=== PATIENT | male | born 1955 ===

== ENCOUNTER 2018-06-19 12:32 | Emergency (ER) | payer OTHER ==
[2018-06-19 13:00] VITALS: BP 164/79; PULSE 74; RESP 20; TEMP 98.3; O2SAT 98
--- NOTE | 2018-06-19 13:03 | C.PDOC ---
History Of Present Illness 62 y/o male with PMH of HTN presents to the ED c/o productive cough x 3 weeks. Associated tactile fever, burning thoracic back pain when coughing and sore throat. Denies flu shot. No sick contacts or recent travel. Denies chills, abdominal pain, N/V, urinary symptoms, numbness, weakness, paresthesias, headache, neck pain, or any other associated symptoms. Time Seen by Provider: 06/19/18 12:48 Chief Complaint (Nursing): Cough, Cold, Congestion History Per: Patient History/Exam Limitations: no limitations Onset/Duration Of Symptoms: Days Current Symptoms Are (Timing): Still Present Past Medical History Reviewed: Historical Data, Nursing Documentation, Vital Signs Vital Signs: Last Vital Signs Temp 98.3 F 06/19/18 12:46 Pulse 74 06/19/18 12:46 Resp 20 06/19/18 12:46 BP 164/79 H 06/19/18 12:46 Pulse Ox 98 06/19/18 12:46 - Medical History PMH: HTN Family History: States: No Known Family Hx - Social History Hx Alcohol Use: Yes Hx Substance Use: No - Immunization History Hx Tetanus Toxoid Vaccination: No Hx Influenza Vaccination: No Hx Pneumococcal Vaccination: No Review Of Systems Constitutional: Positive for: Fever. Negative for: Chills Eyes: Negative for: Vision Change ENT: Negative for: Mouth Pain, Throat Pain, Throat Swelling Cardiovascular: Negative for: Chest Pain, Palpitations Respiratory: Positive for: Cough, Sputum. Negative for: Shortness of Breath Gastrointestinal: Negative for: Nausea, Vomiting, Abdominal Pain Musculoskeletal: Positive for: Back Pain. Negative for: Neck Pain, Shoulder Pain Skin: Negative for: Rash Neurological: Negative for: Weakness, Numbness, Headache, Dizziness Physical Exam - Physical Exam Appears: Well, Non-toxic, No Acute Distress Skin: Normal Color, Warm, Dry Head: Atraumatic, Normacephalic, No Tenderness Eye(s): bilateral: Normal Inspection, PERRL, EOMI Ear(s): Bilateral: Normal Nose: Normal Oral Mucosa: Moist Throat: Normal Neck: Normal, Normal ROM, Supple Chest: Symmetrical, No Deformity, Tenderness (posterior chest wall tender to palpation) Cardiovascular: Rhythm Regular Respiratory: No Accessory Muscle Use, No Rales, No Rhonchi, Wheezing (mild intermittent diffuse bilateral expiratory wheezing) Gastrointestinal/Abdominal: Normal Exam, Bowel Sounds (normoactive), Soft, No Tenderness Back: Normal Inspection, No CVA Tenderness, No Vertebral Tenderness Extremity: Normal ROM, No Tenderness, No Pedal Edema, Capillary Refill (<2s) Extremity: Bilateral: Atraumatic, No Pedal Edema, Normal Color And Temperature, Normal ROM Pulses: Left Radial: Normal, Right Radial: Normal Neurological/Psych: Oriented x3, Normal Speech, Normal Cognition, Normal Motor, Normal Sensation Gait: Steady ED Course And Treatment O2 Sat by Pulse Oximetry: 98 - Other Rad CXR X-Ray: Viewed By Me, Read By Radiologist Interpretation: FINDINGS: LUNGS: No active pulmonary disease. PLEURA: No significant pleural effusion identified. No pneumothorax apparent. CARDIOVASCULAR: No aortic atherosclerotic calcification present. Normal cardiac size. No pulmonary vascular congestion. OSSEOUS STRUCTURES: No significant abnormalities. VISUALIZED UPPER ABDOMEN: Normal. OTHER FINDINGS: None. IMPRESSION: No active disease. Medical Decision Making Medical Decision Making: Initial Plan: * CXR * Rapid flu * Rapid strep * Duoneb Patient reports feeling better after duoneb. Wheezing has resolved. Will discharge with Z-blair and ventolin. Plan of care and diagnostic testing discussed with patient. Strict instructions given regarding importance of followup, prescription use, and signs/symptoms to return, including chest pain, SOB, N/V, abdominal pain, or any other new/worsening symptoms. Patient verbalized understanding of discussion. Patient ambulating with steady gait, A&Ox3, with vitals signs stable for discharge. Disposition - Disposition Referrals: [facility] [Outside] Disposition: HOME/ ROUTINE Disposition Time: 14:45 Condition: IMPROVED Additional Instructions: Aumentar los fluidos Nyla antibiticos segn lo prescrito. Nyla tesaln perles cada 8 horas segn sea necesario para la tos. Use el inhalador cada 6 horas segn sea necesario para la tos Seguimiento con clnica o mdico primario en 2 weiss. Regrese a la domenic de emergencias con cualquier sntoma nuevo o que empeore Prescriptions: Albuterol HFA [Ventolin HFA 90 mcg/actuation (8 g)] 2 puff IH [id number] #60 puff Azithromycin [Z-Blair] 250 mg PO DAILY #6 tab Benzonatate [Tessalon Perle] 100 mg PO Q8H PRN #15 capsule PRN Reason: Cough Instructions: Acute Bronchitis Forms: Gen Discharge Inst [place], [facility] ([place]), Work Excuse Print Language: MONEGASQUE - Clinical Impression Clinical Impression: Lower respiratory infection
[2018-06-19] MEDS ORDERED: Albuterol-Ipratrop 3 mg / 0.5 (3 ml) UD ONE (13:38)
[2018-06-19] MEDS: Albuterol-Ipratrop 3 mg / 0.5 (3 ml) UD INH STA (13:40)
[2018-06-19 14:02] LABS: INFLUENZA A B NEGATIVE FOR FLU A/B (NEGATIVE)
--- NOTE | 2018-06-19 15:00 | RAD ---
Date of service: 06/19/2018 HISTORY: cough, rule out PNA COMPARISON: No prior. TECHNIQUE: Chest PA and lateral FINDINGS: LUNGS: No active pulmonary disease. PLEURA: No significant pleural effusion identified. No pneumothorax apparent. CARDIOVASCULAR: No aortic atherosclerotic calcification present. Normal cardiac size. No pulmonary vascular congestion. OSSEOUS STRUCTURES: No significant abnormalities. VISUALIZED UPPER ABDOMEN: Normal. OTHER FINDINGS: None. IMPRESSION: No active disease.
== END 2018-06-19 15:08 | disposition home or self-care (01) ==
LOC: C.ER 12:32
DX: J22 Unspecified acute lower respiratory infection (principal); I10 Essential (primary) hypertension